=== PATIENT | female | born 1985 | race Caucasian/White ===

== ENCOUNTER 2016-12-21 08:48 | Emergency (ER) | payer MEDICAID ==
[~2016-12-21] VITALS: Ht 182.9 cm; Wt 91.8 kg
[2016-12-21] MEDS ORDERED: LORA-446 PO (09:12)
[2016-12-21] MEDS ORDERED: CYAN50TA PO (09:15)
[2016-12-21] MEDS ORDERED: MAGN400T36 PO (09:16)
[2016-12-21] MEDS ORDERED: ASCO100072 PO (09:17)
[2016-12-21] MEDS ORDERED: LORazepam 1MG TABLET ONE (09:24)
[2016-12-21] MEDS ORDERED: LORazepam 1MG TABLET PO ONE (09:30)
[2016-12-21 09:54] LABS: HEMOGLOBIN 14.5 g/dL (11.7-16.4)
[2016-12-21 10:03] LABS: BLOOD UREA NITROGEN 12 mg/dL (7-18)
[2016-12-21 11:32] VITALS: BP 118/87
== END 2016-12-21 11:34 | disposition home or self-care (01) ==
LOC: ED 10:21
DX: F41.1 Generalized anxiety disorder (principal); J45.909 Unspecified asthma, uncomplicated
CPT/HCPCS: 36415; 80048; 82040; 84436; 84443; 84703; 85025; 93005

== ENCOUNTER 2017-01-08 04:32 | Emergency (ER) | payer MEDICAID ==
[~2017-01-08] VITALS: Ht 170.2 cm; Wt 75.0 kg
[~2017-01-08 04:32] MED LIST: ASCO100072 PO; CYAN50TA PO; LORA-446 PO; MAGN400T36 PO
[2017-01-08] MEDS ORDERED: ONDANSETRON 2MG/ML, 2ML ONE (05:08)
[2017-01-08] MEDS ORDERED: ASPIRIN 81 MG TABLET CHEW ONE (05:08)
[2017-01-08] MEDS ORDERED: LORazepam 2 MG/ML, 1ML ONE (05:09)
[2017-01-08] MEDS ORDERED: SODIUM CHLORIDE 0.9% 1,000ML IVBOLUS ONE (05:30)
[2017-01-08] MEDS ORDERED: SODIUM CHLORIDE FLUSH 10ML SYR IVF ONE (05:30)
[2017-01-08] MEDS ORDERED: ASPIRIN 81 MG TABLET CHEW PO ONE (05:30)
[2017-01-08] MEDS ORDERED: LORazepam 2 MG/ML, 1ML IVPush ONE (05:30)
[2017-01-08] MEDS ORDERED: ONDANSETRON 2MG/ML, 2ML IVPush ONE (05:30)
[2017-01-08 05:42] LABS: HEMOGLOBIN 15.7 g/dL (11.7-16.4)
[2017-01-08 05:56] LABS: IS PT STATUS REG ER OR PRE ER? YES
[2017-01-08 05:57] LABS: ASPARTATE AMINO TRANSFERASE 25 U/L (15-37); BLOOD UREA NITROGEN 15 mg/dL (7-18)
[2017-01-08 08:23] VITALS: BP 128/70
== END 2017-01-08 08:25 | disposition home or self-care (01) ==
LOC: ED 06:12
DX: F10.120 Alcohol abuse with intoxication, uncomplicated (principal); J45.909 Unspecified asthma, uncomplicated; F17.210 Nicotine dependence, cigarettes, uncomplicated; R11.2 Nausea with vomiting, unspecified; R07.89 Other chest pain
CPT/HCPCS: 36415; 71010; 80053; 80307; 83690; 84484; 85025; 93005; 96361; 96374; 96375; 99285; J2060; J2405; J7030

== ENCOUNTER 2017-02-13 20:07 | Emergency (ER) | payer MEDICAID ==
[~2017-02-13] VITALS: Ht 185.4 cm; Wt 91.0 kg
[2017-02-13 20:10] VITALS: BP 129/93
[2017-02-13] MEDS ORDERED: SODIUM CHLORIDE 0.9% 1,000ML IVBOLUS ONE (20:30)
[2017-02-13] MEDS ORDERED: SODIUM CHLORIDE FLUSH 10ML SYR IVF ONE (20:30)
== END 2017-02-13 20:36 | disposition left against medical advice (07) ==
LOC: ED 20:30
DX: R42 Dizziness and giddiness (principal)
CPT/HCPCS: 99281

== ENCOUNTER 2020-10-18 09:17 | Emergency (ER) | payer BC, MEDICAID ==
[~2020-10-18] VITALS: Ht 175.3 cm; Wt 85.0 kg
--- NOTE | 2020-10-18 09:26 | NUR ---
patient arrives with vag bleeding light that began this morning. she states she is , her lmp was early dec. she states she had sex last night and concerned that caused this. she states she has had two confirmed pregnancies and no children
[2020-10-18 10:04] LABS: BASOPHILS % (AUTO) 1 % (0-1); EOSINOPHILS % (AUTO) 2 % (1-7); LYMPHOCYTES % (AUTO) 24 % (22-44); MEAN CORPUSCULAR HEMOGLOBIN 33.6 pg (27.0-34.8); MEAN CORPUSCULAR HGB CONC 35.2 g/dL (32.4-35.8); MEAN PLATELET VOLUME 7.8 fL (7.4-10.4); MONOCYTES % (AUTO) 8 % (2-9); NEUTROPHILS % (AUTO) 65 % (42-75); PLATELET COUNT 233 x10^3/uL (130-400); RED CELL DISTRIBUTION WIDTH 12.5 % (9.6-15.2)
[2020-10-18 10:07] LABS: MD NO
[2020-10-18 10:12] LABS: ALBUMIN 3.4 g/dL (3.4-5.0); CALCIUM 8.8 mg/dL (8.5-10.1); CHLORIDE 106 mmol/L (98-107); CREATININE 0.88 mg/dL (0.55-1.02)
[2020-10-18 10:14] LABS: ANION GAP < 1 mmol/L (5-15)
[2020-10-18 11:23] VITALS: BP 122/78
== END 2020-10-18 11:32 | disposition home or self-care (01) ==
LOC: ED 10:16
DX: O20.0 Threatened abortion (principal); O99.331 Smoking (tobacco) complicating pregnancy, first trimester; F17.200 Nicotine dependence, unspecified, uncomplicated; Z3A.01 Less than 8 weeks gestation of pregnancy
CPT/HCPCS: 36415; 76801; 80048; 82040; 84702; 85025; 86901; 99284

== ENCOUNTER 2021-02-19 16:22 | Inpatient (IN) | payer BC, MEDICAID ==
[~2021-02-19] VITALS: Ht 182.9 cm; Wt 90.7 kg
[2021-02-19] MEDS ORDERED: MAGNESIUM SULFATE PMX 4GM/100M 100 ML IVPB ONE (16:30)
[2021-02-19] MEDS ORDERED: PLEASE ENTER HEIGHT AND WEIGHT MC SCH ×2 (16:30→19:00)
[2021-02-19] MEDS: MAGNESIUM SULF. PMX 20GM/500ML 500 ML IV SCH (16:30)
[2021-02-19] MEDS ORDERED: MAGNESIUM SULF. PMX 20GM/500ML 500 ML IV ONE (16:39)
[2021-02-19] MEDS ORDERED: ONDANSETRON 2MG/ML, 2ML IVPush PRN (17:00)
[2021-02-19] MEDS ORDERED: PENICILLIN GK 5,000,000 UNITS in DEXTROSE 5% 100 ML IV SCH (17:00)
[2021-02-19] MEDS ORDERED: BETAMETHASONE 6 MG/ML, 5ML IM ONE (17:20)
[2021-02-19 17:28] LABS: ALANINE AMINOTRANSFERASE 14 U/L (12-78); ALBUMIN 2.7 g/dL (3.4-5.0); ANION GAP 8 mmol/L (5-15); CALCIUM 8.7 mg/dL (8.5-10.1); CHLORIDE 107 mmol/L (98-107); CREATININE 0.66 mg/dL (0.55-1.02)
[2021-02-19] MEDS: BETAMETHASONE 6 MG/ML, 5ML IM SCH (17:28)
[2021-02-19 17:30] LABS: ALKALINE PHOSPHATASE 44 U/L (45-117); BILIRUBIN,TOTAL 0.3 mg/dL (0.2-1.0); TOTAL PROTEIN 5.8 g/dL (6.4-8.2)
[2021-02-19 17:34] LABS: BASOPHILS % (AUTO) 0 % (0-1); EOSINOPHILS % (AUTO) 2 % (1-7); LYMPHOCYTES % (AUTO) 23 % (22-44); MEAN CORPUSCULAR HEMOGLOBIN 33.5 pg (27.0-34.8); MEAN CORPUSCULAR HGB CONC 35.2 g/dL (32.4-35.8); MEAN PLATELET VOLUME 7.9 fL (7.4-10.4); MONOCYTES % (AUTO) 5 % (2-9); NEUTROPHILS % (AUTO) 70 % (42-75); PLATELET COUNT 249 x10^3/uL (130-400); RED BLOOD COUNT 3.48 x10^6/uL (3.82-5.3); RED CELL DISTRIBUTION WIDTH 12.5 % (9.6-15.2)
[2021-02-19 19:17] LABS: AMPHETAMINE SCREEN, URINE Negative (Negative); BARBITURATE SCREEN, URINE Negative (Negative); BENZODIAZEPINE SCREEN, URINE Negative (Negative); CANNABINOID SCREEN, URINE Negative (Negative); COCAINE SCREEN, URINE Negative (Negative); METHADONE SCREEN, URINE Negative (Negative); OPIATE SCREEN, URINE Negative (Negative)
[2021-02-19 19:30] VITALS: BP 123/62
[2021-02-19 19:33] VITALS: BP 123/62
[2021-02-19] MEDS: PENICILLIN GK 2,500,000 UNITS in DEXTROSE 5% 100 ML IV SCH (22:15)
[2021-02-19] MEDS ORDERED: CALCIUM CARBONATE 500 MG TAB.CHEW PO PRN (23:00)
[2021-02-20] MEDS: MAGNESIUM SULF. PMX 20GM/500ML 500 ML IV SCH ×3 (01:02→19:29)
[2021-02-20] MEDS: PENICILLIN GK 2,500,000 UNITS in DEXTROSE 5% 100 ML IV SCH ×6 (02:18→22:16)
[2021-02-20] MEDS: LACTATED RINGERS 1,000 ML IV PRN ×2 (05:01→18:34)
[2021-02-20] MEDS ORDERED: PRENATAL VIT/IRON/FA 1 EACH TABLET ONE (07:57)
[2021-02-20] MEDS ORDERED: DOCUSATE 100 MG CAPSULE ONE (07:57)
[2021-02-20 08:18] VITALS: BP 109/63
[2021-02-20] MEDS ORDERED: CALC300T5 PO (08:42)
[2021-02-20] MEDS ORDERED: DIPH25CA61 PO (08:42)
[2021-02-20] MEDS ORDERED: PREN1TAB60 PO (08:42)
[2021-02-20] MEDS ORDERED: PROG100C16 VG (08:43)
[2021-02-20] MEDS: DOCUSATE 100 MG CAPSULE PO SCH ×2 (08:48→20:54)
[2021-02-20] MEDS ORDERED: PRENATAL VIT/IRON/FA 1 EACH TABLET PO SCH (09:00)
[2021-02-20] MEDS: ACETAMINOPHEN 325 MG TABLET PO PRN (12:34)
[2021-02-20] MEDS: BETAMETHASONE 6 MG/ML, 5ML IM SCH (17:29)
[2021-02-20] MEDS: DIPHENHYDRAMINE 12.5MG/5ML, 10ML UDC HOMEMEDPO PRN (22:17)
[2021-02-21] MEDS: PENICILLIN GK 2,500,000 UNITS in DEXTROSE 5% 100 ML IV SCH ×5 (01:53→17:58)
[2021-02-21] MEDS: MAGNESIUM SULF. PMX 20GM/500ML 500 ML IV SCH (05:29)
[2021-02-21] MEDS: LACTATED RINGERS 1,000 ML IV PRN (07:47)
[2021-02-21] MEDS: DOCUSATE 100 MG CAPSULE PO SCH ×2 (08:30→20:47)
[2021-02-21] MEDS: ACETAMINOPHEN 325 MG TABLET PO PRN ×2 (08:42→22:22)
[2021-02-21] MEDS: PRENATAL VIT/IRON/FA 1 EACH TABLET PO SCH (08:48)
[2021-02-21] MEDS: DIPHENHYDRAMINE 12.5MG/5ML, 10ML UDC HOMEMEDPO PRN (20:00)
[2021-02-21 20:48] VITALS: BP 103/64
[2021-02-21 21:15] LABS: MICROSCOPIC INDICATED
[2021-02-22 07:43] VITALS: BP 122/66
[2021-02-22] MEDS: PRENATAL VIT/IRON/FA 1 EACH TABLET PO SCH (09:00)
[2021-02-22] MEDS: ACETAMINOPHEN 325 MG TABLET PO PRN ×2 (11:35→20:26)
[2021-02-22 20:18] VITALS: BP 117/58
[2021-02-22] MEDS: SODIUM CHLORIDE FLUSH 3ML SYRINGE IVF SCH ×2 (20:26→21:00)
[2021-02-22] MEDS: DOCUSATE 100 MG CAPSULE PO SCH ×2 (20:26→21:00)
[2021-02-22] MEDS: DIPHENHYDRAMINE 12.5MG/5ML, 10ML UDC HOMEMEDPO PRN (20:27)
[2021-02-23 07:52] VITALS: BP 113/68
[2021-02-23] MEDS: SODIUM CHLORIDE FLUSH 3ML SYRINGE IVF SCH (08:10)
[2021-02-23] MEDS: PRENATAL VIT/IRON/FA 1 EACH TABLET PO SCH (08:10)
[2021-02-23] MEDS: DOCUSATE 100 MG CAPSULE PO SCH (08:10)
[2021-02-23] MEDS: ZOLPIDEM 5MG TABLET PO PRN ×2 (20:59→22:10)
[2021-02-24] MEDS: DOCUSATE 100 MG CAPSULE PO SCH ×3 (07:51→21:00)
[2021-02-24] MEDS: PRENATAL VIT/IRON/FA 1 EACH TABLET PO SCH (07:51)
[2021-02-24 10:52] VITALS: BP 101/51
[2021-02-24] MEDS: ZOLPIDEM 5MG TABLET PO PRN (20:43)
[2021-02-24] MEDS: ACETAMINOPHEN 325 MG TABLET PO PRN (20:43)
[2021-02-25] MEDS ORDERED: MAGNESIUM HYDROXIDE 8%, 30ML UDC ONE (08:14)
[2021-02-25] MEDS: MAGNESIUM HYDROXIDE 8%, 30ML UDC PO PRN (09:00)
[2021-02-25] MEDS: PRENATAL VIT/IRON/FA 1 EACH TABLET PO SCH (09:00)
[2021-02-25] MEDS: SODIUM CHLORIDE FLUSH 3ML SYRINGE IVF SCH (09:45)
[2021-02-25] MEDS: ACETAMINOPHEN 325 MG TABLET PO PRN (21:24)
[2021-02-25] MEDS: DIPHENHYDRAMINE 12.5MG/5ML, 10ML UDC HOMEMEDPO PRN (21:24)
[2021-02-25] MEDS: ZOLPIDEM 5MG TABLET PO PRN (21:24)
[2021-02-26] MEDS: PRENATAL VIT/IRON/FA 1 EACH TABLET PO SCH (09:30)
[2021-02-26 19:33] VITALS: BP 120/60
[2021-02-26] MEDS: ACETAMINOPHEN 325 MG TABLET PO PRN (20:51)
[2021-02-26] MEDS: MAGNESIUM HYDROXIDE 8%, 30ML UDC PO PRN (20:54)
[2021-02-26] MEDS: DOCUSATE 100 MG CAPSULE PO SCH (21:00)
[2021-02-26] MEDS: ZOLPIDEM 5MG TABLET PO PRN (21:33)
[2021-02-27] MEDS: DOCUSATE 100 MG CAPSULE PO SCH ×3 (09:00→21:07)
[2021-02-27] MEDS: ACETAMINOPHEN 325 MG TABLET PO PRN (21:06)
[2021-02-27] MEDS: ZOLPIDEM 5MG TABLET PO PRN (21:07)
[2021-02-28 07:15] VITALS: BP 107/63
[2021-02-28] MEDS: DOCUSATE 100 MG CAPSULE PO SCH ×3 (08:54→21:00)
[2021-02-28] MEDS: PRENATAL VIT/IRON/FA 1 EACH TABLET PO SCH (09:00)
[2021-02-28] MEDS: ACETAMINOPHEN 325 MG TABLET PO PRN (21:22)
[2021-02-28] MEDS: ZOLPIDEM 5MG TABLET PO PRN (21:22)
[2021-03-01 08:20] VITALS: BP 104/61
[2021-03-01] MEDS: DOCUSATE 100 MG CAPSULE PO SCH ×3 (09:00→21:32)
[2021-03-01] MEDS: PRENATAL VIT/IRON/FA 1 EACH TABLET PO SCH (09:00)
[2021-03-01] MEDS: ACETAMINOPHEN 325 MG TABLET PO PRN (21:25)
[2021-03-01] MEDS: ZOLPIDEM 5MG TABLET PO PRN (21:26)
[2021-03-02] MEDS: PRENATAL VIT/IRON/FA 1 EACH TABLET PO SCH (09:00)
[2021-03-02] MEDS: DOCUSATE 100 MG CAPSULE PO SCH ×2 (09:00→21:00)
[2021-03-02] MEDS ORDERED: POLYETHYLENE GLYCOL 17 GM PACKET NG PRN (17:30)
[2021-03-02] MEDS: ACETAMINOPHEN 325 MG TABLET PO PRN (21:10)
[2021-03-02] MEDS: ZOLPIDEM 5MG TABLET PO PRN (21:10)
[2021-03-03 08:30] VITALS: BP 95/58
[2021-03-03] MEDS: DOCUSATE 100 MG CAPSULE PO SCH ×2 (09:00→21:00)
[2021-03-03] MEDS: PRENATAL VIT/IRON/FA 1 EACH TABLET PO SCH (09:00)
[2021-03-03 19:45] VITALS: BP 110/68
[2021-03-03] MEDS: ZOLPIDEM 5MG TABLET PO PRN (21:08)
[2021-03-04] MEDS: PRENATAL VIT/IRON/FA 1 EACH TABLET PO SCH (09:00)
[2021-03-04] MEDS: DOCUSATE 100 MG CAPSULE PO SCH ×2 (09:00→21:37)
[2021-03-04] MEDS: ACETAMINOPHEN 325 MG TABLET PO PRN (18:34)
[2021-03-04 20:20] VITALS: BP 102/60
[2021-03-04] MEDS: ZOLPIDEM 5MG TABLET PO PRN (21:37)
[2021-03-05] MEDS: PRENATAL VIT/IRON/FA 1 EACH TABLET PO SCH (08:10)
[2021-03-05] MEDS: DOCUSATE 100 MG CAPSULE PO SCH ×2 (08:15→22:00)
[2021-03-05 19:39] VITALS: BP 105/63
[2021-03-05] MEDS: ZOLPIDEM 5MG TABLET PO PRN (22:00)
[2021-03-06] MEDS: DOCUSATE 100 MG CAPSULE PO SCH ×2 (08:53→08:54)
[2021-03-06] MEDS: PRENATAL VIT/IRON/FA 1 EACH TABLET PO SCH (08:54)
[2021-03-06] MEDS: ACETAMINOPHEN 325 MG TABLET PO PRN (21:17)
[2021-03-06] MEDS: ZOLPIDEM 5MG TABLET PO PRN (21:17)
[2021-03-07] MEDS: PRENATAL VIT/IRON/FA 1 EACH TABLET PO SCH (08:10)
[2021-03-07] MEDS: DOCUSATE 100 MG CAPSULE PO SCH (08:10)
[2021-03-07] MEDS: ZOLPIDEM 5MG TABLET PO PRN (21:11)
[2021-03-07] MEDS: ACETAMINOPHEN 325 MG TABLET PO PRN (21:11)
[2021-03-08] MEDS: PRENATAL VIT/IRON/FA 1 EACH TABLET PO SCH (09:00)
[2021-03-08] MEDS: DOCUSATE 100 MG CAPSULE PO SCH ×2 (09:45→21:03)
[2021-03-08] MEDS: ZOLPIDEM 5MG TABLET PO PRN (21:02)
[2021-03-08] MEDS: ACETAMINOPHEN 325 MG TABLET PO PRN (21:03)
[2021-03-09] MEDS ORDERED: ACETAMINOPHEN 650 MG SUPP ONE (14:21)
[2021-03-09] MEDS: ACETAMINOPHEN 325 MG TABLET PO PRN ×2 (14:24→20:15)
[2021-03-09] MEDS: ZOLPIDEM 5MG TABLET PO PRN (20:16)
[2021-03-10 08:00] VITALS: BP 116/61
== END 2021-03-10 10:33 | disposition home or self-care (01) | DRG 833 ==
LOC: LDIP 16:22
PROVIDERS: ADMIT Obstetrics & Gynecology Female Pelvic Medicine and Reconstructive Surgery; ATTEND Obstetrics & Gynecology Female Pelvic Medicine and Reconstructive Surgery
DX: O26.872 Cervical shortening, second trimester (principal); O99.332 Smoking (tobacco) complicating pregnancy, second trimester; O99.512 Diseases of the respiratory system complicating pregnancy, second trimester; F41.9 Anxiety disorder, unspecified; J45.909 Unspecified asthma, uncomplicated; O99.344 Other mental disorders complicating childbirth; Z3A.24 24 weeks gestation of pregnancy; O09.522 Supervision of elderly multigravida, second trimester; Z20.822 Contact with and (suspected) exposure to COVID-19
CPT/HCPCS: 36415; 80053; 80307; 81001; 82962; 83735; 85025; 86850; 86900; 87081; 87635; G0378; J0702; J2540; J3475; J7120